=== PATIENT | male | born 1980 | race Caucasian/White ===

== ENCOUNTER → 2024-03-14 16:26 | Outpatient (REF) | payer OTHER, SELFPAY | LOC: HWRAD 16:26 | PROVIDERS: ATTENDING PHYSICIAN Podiatrist Foot & Ankle Surgery; FAMILY PHYSICIAN Nurse Practitioner Family | DX: R20.2 Paresthesia of skin (principal); G57.62 Lesion of plantar nerve, left lower limb | CPT/HCPCS: 73630 ==